=== PATIENT | female | born 1995 | race African-American/Black ===

== ENCOUNTER 2017-08-05 17:56 | Emergency (ER) | payer SELFPAY ==
[~2017-08-05] VITALS: Ht 160 cm; Wt 50.0 kg
[~2017-08-05 17:56] MED LIST: CORTIS10A EACH EAR; Z.0.NO CURRENT MEDS
[2017-08-05 17:58] VITALS: BP 119/75; PULSE 90; RESP 18; TEMP 98.6; O2SAT 100
[2017-08-05] MEDS ORDERED: AMOX500T PO (19:19)
--- NOTE | 2017-08-05 19:23 | PD ---
HPI Chief Complaint: ENT Complaint Time Seen by Provider: 19:13 Travel History International Travel<30 days: No Contact w/Intl Traveler<30days: No Traveled to known affect area: No History of Present Illness HPI 22-year-old black female presents to emergency Department with complaints of right ear pain and bleeding after using a wax removal device yesterday evening. Pain is mild. She has noted some decreased hearing. No nausea vomiting. No fever chills. Symptoms are mild PFSH Past Medical History Developmental Delay: Yes Immunizations Current: Yes Tetanus Vaccination: < 5 Years ?: Not LMP: JULY 2017 Social History Alcohol Use: No Tobacco Use: No Substance Use: No Allergies-Medications (Allergen,Severity, Reaction): Coded Allergies: No Known Allergies (Verified Adverse Reaction, Unknown, 08/05/17) Reported Meds & Prescriptions Reported Meds & Active Scripts Active Amoxicillin 500 Mg Tab 500 Mg PO TID Review of Systems General / Constitutional: No: Fever Eyes: No: Visual changes HENT: Positive: Ear Discharge, Earache, No: Headaches, Sore Throat Cardiovascular: No: Chest Pain or Discomfort Respiratory: No: Shortness of Breath Gastrointestinal: No: Abdominal Pain Genitourinary: No: Dysuria Musculoskeletal: No: Pain Skin: No Rash Neurologic: No: Weakness Psychiatric: No: Depression Endocrine: No: Polydipsia Hematologic/Lymphatic: No: Easy Bruising Physical Exam Narrative GENERAL: Well-developed, well-nourished in no acute distress. Nontoxic appearing. HEAD: Normocephalic, atraumatic. EYES: Pupils equal round and reactive. Extraocular motions intact. No scleral icterus. No injection or drainage. ENT: Left TMs clear without erythema. The left external auditory canals clear. The right external auditory canals blood in it. There is a TM perforation at the 5:00 hour. There is a small amount of serosanguineous discharge. Nose: clear . Posterior pharynx is pink and moist. No tonsillar edema or exudate. Uvula midline. Airway patent. NECK: Trachea midline.Supple, nontender, moves head freely. No central bony tenderness or spasm. CARDIOVASCULAR: Regular rate and rhythm without murmurs, gallops, or rubs. RESPIRATORY: Clear to auscultation. Breath sounds equal bilaterally. No wheezes , rales, or rhonchi. GASTROINTESTINAL: Abdomen soft, non-tender, nondistended. No hepato-splenomegaly , or palpable masses. No guarding. EXTREMITIES: No clubbing, cyanosis, or edema. No joint tenderness, effusion, or edema noted. BACK: Nontender without deformity or crepitance. No flank tenderness. Data Data Last Documented VS Vital Signs Date Time Temp Pulse Resp B/P (MAP) Pulse Ox O2 Delivery O2 Flow Rate FiO2 08/05/17 18:07 16 08/05/17 17:58 98.6 90 119/75 (90) 100 [facility] Medical Decision Making Medical Screen Exam Complete: Yes Emergency Medical Condition: Yes Medical Record Reviewed: Yes Differential Diagnosis Differential diagnoses: Abrasion, contusion, TM perforation, otitis media Narrative Course This is TM perforation Diagnosis Primary Impression: right TM perforation Patient Instructions: General Instructions Additional Instructions: Rest. Increase fluids. Amoxicillin. Tylenol or Advil for pain. Do not put anything in irrigated water in ear. Follow-up with a primary care doctor in 1 week. Follow-up with ENT in 2 weeks. Return to the ER for emergencies. Med/Other Pt SpecificInfo: Prescription(s) given Scripts Amoxicillin (Amoxicillin) 500 Mg Tab 500 MG PO TID for Infection, #30 TAB 0 Refills Prov: Eligio Alberto MD 08/05/17 Disposition: 01 DISCHARGE HOME Condition: Stable Tyler Ortega Aug 05, 2017 19:23
== END 2017-08-05 19:43 | disposition home or self-care (01) ==
LOC: NEPD 17:56
DX: H72.91 Unspecified perforation of tympanic membrane, right ear (principal); R62.50 Unspecified lack of expected normal physiological development in childhood
CPT/HCPCS: 99283